=== PATIENT | female | born 1980 ===

== ENCOUNTER → 2017-12-05 | Outpatient (CLI) | payer MEDICAID ==
[~2017-12-05] MED LIST: IBUP600T22 PO; MELA10TA2 PO; PHEN-578 PO; VALA500T66 PO
--- NOTE | 2017-12-05 15:21 | RT STRESS TEST REPORT ---
FACILITY: [facility] PATIENT NAME: KENYETTA ARENAS : [id number] MR: [id number] V: [id number] EXAM DATE: ORDERING PHYSICIAN: MÓNICA RAINES TECHNOLOGIST: Acquisition Time: 2017-12-05 13:59:33 Total Exercise Time: 00:10:00 Test Indications: Chest Pain / Discomfort Medications: Protocol: BRUCE2 Max HR: 179 BPM 96% of Pred: 185 BPM Max BP: 160/077 mmHG Max Work Load: 11.6 METS The patient developed some chest tightness with maximal exertion. Pulse oximetry was noted to be 87%. There were no associated EKG changes. Confirmed by DONNY CAGLE ([id number]) on 12/05/2017 3:21:15 PM Referred By: Overread By: DONNY CAGLE
== END ==
LOC: RESP 00:42
PROVIDERS: ATTEND Obstetrics & Gynecology
DX: R07.89 Other chest pain (principal)
CPT/HCPCS: 93017

== ENCOUNTER 2018-05-17 11:32 | Emergency (ER) | payer MEDICAID ==
--- NOTE | 2018-05-17 11:40 | ER Report ---
History and Physical Time Seen By MD: 11:41 Hx. of Stated Complaint: PATIENT SLIPPED ON ICE LAST NIGHT AND LANDED ON HER FACE. SHE HAS A LACERATION ON HER LOWER LIP ON THE INSIDE DOWN BY HER GUMLINE HPI/ROS CHIEF COMPLAINT: Fall HISTORY OF PRESENT ILLNESS: This is a 37-year-old female presents to emergency department for a fall and facial injuries. Patient states that lastly she slipped on ice, fell forward hitting her nose and jaw on concrete. No loss of consciousness. Did have some bleeding, does have a laceration to the lower frenulum between the teeth and lip. Also has some swelling around the bridge of the nose, abrasion to the upper lip and chin. No C-spine tenderness. No chest pain, no nausea or vomiting. No fevers or chills. REVIEW OF SYSTEMS: Respiratory: No cough, no dyspnea. Cardiovascular: No chest pain, no palpitations. Gastrointestinal: No vomiting, no abdominal pain. Musculoskeletal: As above. Allergies: Coded Allergies: Penicillins (Verified Allergy, Intermediate, RASH, 05/24/17) Home Meds Active Scripts Hydrocodone Bit/Acetaminophen (HYDROCODON-ACETAMINOPHEN 5-325) 1 Each Tablet, 1 EACH PO Q4-6H PRN for PAIN, #8 TAB Prov:CHA GIRALDO [employer] COORDINATOR-BC 05/17/18 Reported Medications Valacyclovir Hcl (VALTREX) 500 Mg Tablet, 500 MG PO QDAY 06/18/17 Phentermine Hcl (PHENTERMINE HCL) 37.5 Mg Tablet, 1 TAB PO QDAY 06/18/17 Melatonin (MELATONIN) 10 Mg Tablet, 10 MG PO QHS 06/18/17 Ibuprofen (IBUPROFEN) 600 Mg Tablet, 1 TAB PO PRN, TAB 06/18/17 Past Medical/Surgical History The patient has a past medical surgical history of tonsillectomy, breast augmentation. Reviewed Nurses Notes: Yes Hx Smoking: No Smoking Status: Never Smoker Exposure to Second Hand Smoke?: Yes (childhood) Hx Substance Use Disorder: No Hx Alcohol Use: Yes (RARE) Constitutional Vital Sign - Last 24 Hours 05/17/18 05/17/18 11:36 14:32 Temp 98.8 Pulse 100 76 Resp 20 18 B/P (MAP) 140/93 140/93 (109) Pulse Ox 93 O2 Delivery Room Air Room Air Physical Exam General Appearance: The patient is alert, has no immediate need for airway protection and no current signs of toxicity. Eyes: Pupils equal and round no injection. EOMs intact. No nystagmus. Respiratory: Chest is non tender, lungs are clear to auscultation. Cardiac: regular rate and rhythm, no murmurs, clicks or rubs. Gastrointestinal: Abdomen is soft and non tender, no masses, bowel sounds normal. Musculoskeletal: Neck: Neck is supple and non tender. No C-spine tenderness. Extremities have full range of motion and are non tender. Skin: Edema to the bridge of the nose, upper and lower lip, and chin. Abrasions to upper lip and chin. Laceration between the lower lip along the gumline, 1 cm. bleeding controlled. DIFFERENTIAL DIAGNOSIS: After history and physical exam differential diagnosis was considered for laceration, mandible fracture, dental fracture and [place] fracture. Medical Decision Making EKG/Imaging Imaging Location: [facility] [place] Patient: Trudy Ramírez : 1980 Visit/Account:[id number] Date of Sevice: 05/17/2018 EXAMINATION: Mandible, 4 views 05/17/2018 11:48 AM HISTORY: fall, pain COMPARISON: None FINDINGS: No mandibular fracture or displacement is demonstrated. TMJ articulations appear to be well preserved. No dental fracture or displacement is demonstrated. Paranasal sinuses as imaged are well aerated. Mastoids are symmetrically pneumatized. Visualized cervical spine is intact. IMPRESSION: Negative exam. Report Dictated By: Tamir Armstrong MD at 05/17/2018 12:52 PM Report E-Signed By: Tamir Armstrong MD at 05/17/2018 12:54 PM WSN:[id number] ED Course/Re-evaluation ED Course The patient was admitted to room. A history of this were obtained. Differential diagnoses were considered. An x-ray of the mandible was negative for any acute osseous abnormalities. I reviewed the imaging results with the patient. I did tell her that this is likely a bruise and will resolve after the next several days. The laceration the inner lip at the gumline was repaired as noted below. Patient tolerated well. Patient was also given viscous lidocaine after the repair, she was also sent home with a prescription for magic mouthwash for pain. She was also sent home with prescription for hydrocodone. Patient was instructed to follow-up with her primary care provider in one week for reevaluation. Patient exposed understanding was discharged home. The patient's tetanus was updated. Procedure: Laceration repair. Verbal consent was obtained from the patient. The one centimeters laceration to the lower inner lip and gumline was anesthetized in the usual fashion. The wound was scrubbed, draped and explored to its base with a gloved finger. There were no deep structures involved. The wound was repaired with 2, 5-0 Vicryl simple interrupted sutures. The wound repair was simple. The procedure was performed by myself. Decision to Disposition Date: May 17, 2018 Decision to Disposition Time: 14:15 Depart Departure Latest Vital Signs Vital Signs Date Time Temp Pulse Resp B/P (MAP) Pulse Ox O2 Delivery O2 Flow Rate FiO2 05/17/18 14:32 76 18 140/93 (109) Room Air 05/17/18 11:36 98.8 93 Impression: Primary Impression: Laceration of gum Condition: Improved Disposition: HOME OR SELF-CARE Referrals: MÓNICA RAINES MD (PCP) New Scripts Hydrocodone Bit/Acetaminophen (HYDROCODON-ACETAMINOPHEN 5-325) 1 Each Tablet 1 EACH PO Q4-6H PRN for PAIN, #8 TAB Prov: CHA GIRALDO 05/17/18 Patient Instructions: Acute Wound Care (ED), Laceration,Lip Additional Instructions: The sutures will dissolve after several weeks. Although the likelihood of an infection is low, there is still a possibility, so please keep a close eye on the wound for increased redness, swelling and pus. Take the hydrocodone as needed for pain. Drink plenty of water. Get plenty of rest. Follow up with your PCP in one week for reevaluation. Return to the ED for any other concerns or worsening symptoms. CHA GIRALDO-BC May 17, 2018 11:40
[2018-05-17] MEDS ORDERED: DIPHTH/TETANUS/ACEL. PERTUSSIS IM ONLY ONE (11:55)
--- NOTE | 2018-05-17 12:58 | RADIOLOGY IMAGING REPORT ---
FACILITY: [facility] PATIENT NAME: Trudy Ramírez : 1980 MR: [id number] V: [id number] EXAM DATE: ORDERING PHYSICIAN: CHA GIRALDO TECHNOLOGIST: [place] [facility] [place]udy Ramírez : 1980 Visit/Account:[id number] Date of Sevice: 05/17/2018 EXAMINATION: Mandible, 4 views 05/17/2018 11:48 AM HISTORY: fall, pain COMPARISON: None FINDINGS: No mandibular fracture or displacement is demonstrated. TMJ articulations appear to be wel l preserved. No dental fracture or displacement is demonstrated. Paranasal sinuses as imaged are well aerated. Mastoids are symmetrically pneumatized. Visualized cervical spine is intact. IMPRESSION: Negative exam. Report Dictated By: Tamir Armstrong MD at 05/17/2018 12:52 PM Report E-Signed By: Tamir Armstrong MD at 05/17/2018 12:54 PM WSN:[id number]
[2018-05-17] MEDS ORDERED: LIDOCAINE 2% VISC SLN 15ML UDC PO ONE (14:10)
[2018-05-17 14:32] VITALS: BP 140/93
[2018-05-17] MEDS ORDERED: HYDR-385 PO (14:34)
== END 2018-05-17 14:35 | disposition home or self-care (01) ==
LOC: ER 11:34
DX: S01.512A Laceration without foreign body of oral cavity, initial encounter (principal); S01.511A Laceration without foreign body of lip, initial encounter; W00.0XXA Fall on same level due to ice and snow, initial encounter
CPT/HCPCS: 70100; 90471; 90715; 99283

== ENCOUNTER 2018-05-19 13:56 | Emergency (ER) | payer MEDICAID ==
[~2018-05-19 13:56] MED LIST changes: +HYDR-385 PO
--- NOTE | 2018-05-19 14:00 | ER Report ---
History and Physical Time Seen By : 14:01 HPI/ROS CHIEF COMPLAINT: Jaw pain HISTORY OF PRESENT ILLNESS: This is a 37-year-old female presents to the emergency department for jaw pain. Patient was seen and evaluated May 17 for a fall injuring her nose, upper lip and chin. She had a laceration between her lower lip and gumline, this was repaired. Mandible X-rays were negative for fracture. The patient states she was feeling better, then last night she began to have some right jaw pain, she also states she feels like the sutures did come out. She does have wounds to the upper lip and chin that are healing, the swelling has improved. She denies fevers or chills, no n/v. No discharge. REVIEW OF SYSTEMS: Constitutional: No fever, no chills. Eyes: No discharge. ENT: No sore throat. Cardiovascular: No chest pain, no palpitations. Respiratory: No cough, no shortness of breath. Gastrointestinal: No abdominal pain, no vomiting. Genitourinary: No hematuria. Musculoskeletal: As above. Skin: Supple. Neurological: No headache. Allergies: Coded Allergies: Penicillins (Verified Allergy, Intermediate, RASH, 05/24/17) Home Meds Active Scripts Hydrocodone Bit/Acetaminophen (HYDROCODON-ACETAMINOPHEN 5-325) 1 Each Tablet, 1 EACH PO Q4-6H PRN for PAIN, #8 TAB Prov:CHA GIRALDO [facility] 05/19/18 Clindamycin Hcl (CLINDAMYCIN HCL) 300 Mg Capsule, 300 MG PO Q6H, #40 CAPSULE Prov:CHA GIRALDO [facility] 05/19/18 Hydrocodone Bit/Acetaminophen (HYDROCODON-ACETAMINOPHEN 5-325) 1 Each Tablet, 1 EACH PO Q4-6H PRN for PAIN, #8 TAB Prov:CHA GIRALDO [facility]- 05/17/18 Reported Medications Valacyclovir Hcl (VALTREX) 500 Mg Tablet, 500 MG PO QDAY 06/18/17 Phentermine Hcl (PHENTERMINE HCL) 37.5 Mg Tablet, 1 TAB PO QDAY 06/18/17 Melatonin (MELATONIN) 10 Mg Tablet, 10 MG PO QHS 06/18/17 Ibuprofen (IBUPROFEN) 600 Mg Tablet, 1 TAB PO PRN, TAB 06/18/17 Past Medical/Surgical History The patient has a past medical and surgical history of tonsillectomy, breast augmentation with implants. Reviewed Nurses Notes: Yes Hx Smoking: No Smoking Status: Never Smoker Exposure to Second Hand Smoke?: Yes (childhood) Hx Substance Use Disorder: No Hx Alcohol Use: Yes (RARE) Constitutional Vital Sign - Last 24 Hours 05/19/18 05/19/18 05/19/18 05/19/18 13:57 14:04 14:15 14:30 Temp 98.4 Pulse 67 Resp 20 B/P (MAP) 120/92 126/96 (106) 120/89 (99) 133/99 (110) Pulse Ox 93 O2 Delivery Room Air 05/19/18 05/19/18 05/19/18 05/19/18 14:45 14:56 15:00 15:15 Pulse 66 B/P (MAP) 120/92 (101) 120/89 (99) 121/92 (102) Pulse Ox 91 05/19/18 05/19/18 15:26 15:30 Pulse 67 B/P (MAP) 123/93 (103) Pulse Ox 94 Physical Exam General Appearance: The patient is alert, has no immediate need for airway protection and no signs of toxicity. Eyes: Pupils equal and round no pallor or injection. ENT, Mouth: Mucous membranes are moist. It does appear that at least one of the sutures between the lower lip and gumline did pull through, no drainage, the la ceration does appear to be healing. No erythema to the gingiva. Respiratory: There are no retractions, lungs are clear to auscultation. Cardiovascular: Regular rate and rhythm. Gastrointestinal: Abdomen is soft and non tender, no masses, bowel sounds nor mal. Neurological: Alert and oriented 4. Moving all x-rays. Following all commands. No focal neuro deficits. Skin: Abrasions to the upper lip and chin are healing, no drainage. There is a small amount of erythema to the chin, no cellulitis. Musculoskeletal: Neck is supple non tender. Right mandible is painful to touch, no crepitus or deformities. Extremities are nontender, nonswollen and have full range of motion. DIFFERENTIAL DIAGNOSIS: After history and physical exam differential diagnosis was considered for cellulitis, contusion, abrasion, mandible fracture. Medical Decision Making EKG/Imaging Imaging EXAMINATION: CT Face without intravenous contrast HISTORY: Trauma. COMPARISON: Mandible radiographs dated 05/17/2018. TECHNIQUE: Axial images were obtained from the superior aspect of the orbits through the inferior aspect of mandible. Coronal and sagittal reformatted images were obtained from the axial source data. No IV contrast was administered. One of the following dose optimization techniques was utilized in the performance of this exam: Automated exposure control; adjustment of the mA and/or kV according to the patient's size; or use of an iterative reconstruction technique. Specific details can be referenced in the facility's radiology CT exam operational policy. FINDINGS: Soft Tissues: Negative. Mandible / TMJ: Negative. Maxillae / pterygoid plates: Negative. Zygoma / zygomatic arches: Negative. Orbits: Negative. Nasal bones / nasal septum: Leftward nasal septal deviation. Frontal bones: Negative. Sinuses: Mild mucosal thickening in the left frontal sinus, maxillary sinus, and ethmoid air cells. Leftward nasal septal deviation. Visualized brain: Negative. IMPRESSION: 1. No acute maxillofacial fracture. 2. Mild mucosal thickening in the left frontal sinus, maxillary sinus, and ethmoid air cells. Leftward nasal septal deviation. Report Dictated By: Cha Urena MD at 05/19/2018 2:53 PM Report E-Signed By: Cha Urena MD at 05/19/2018 2:57 PM WSN:[id number] ED Course/Re-evaluation ED Course The patient was admitted to room. A history of this were obtained. Differential diagnoses were considered. The patient had mandible x-rays on the [place] 1[facility] which were negative for any acute fractures, patient returned today with increased pain to the right mandible, a CT was negative for any acute abnormalities. She does have some mild erythema to the chin no obvious signs of cellulitis, however with the injuries and her complaints she denied decided to start her on clindamycin. She was also given one more prescription for hydrocodone. I did recommend following up with her primary care provider. Return to ER for any other concerns or worsening symptoms. Patient exposed to any was discharged home. No other repairs were done. Decision to Disposition Date: May 19, 2018 Decision to Disposition Time: 15:14 Depart Departure Latest Vital Signs Vital Signs Date Time Temp Pulse Resp B/P (MAP) Pulse Ox O2 Delivery O2 Flow Rate FiO2 05/19/18 15:30 123/93 (103) 12/3/18 15:26 67 94 05/19/18 13:57 98.4 20 Room Air Impression: Primary Impression: Mandible pain Additional Impression: Facial injury Condition: Improved Disposition: HOME OR SELF-CARE Referrals: MÓNICA RAINES MD (PCP) CORNELIUS COLUNGA JR, MD New Scripts Hydrocodone Bit/Acetaminophen (HYDROCODON-ACETAMINOPHEN 5-325) 1 Each Tablet 1 EACH PO Q4-6H PRN for PAIN, #8 TAB Prov: CHA GIRALDO [facility]- 05/19/18 Clindamycin Hcl (CLINDAMYCIN HCL) 300 Mg Capsule 300 MG PO Q6H, #40 CAPSULE Prov: CHA GIRALDO [facility]- 05/19/18 Patient Instructions: Acute Wound Care (ED), Cellulitis (ED) Additional Instructions: No evidence of fracture on the CT today. I am going to treat you for a possible infection, take the clindamycin as directed. Take Ibuprofen and Tylenol as needed for pain. Take the Hydrocodone for severe pain. Drink plenty of water. Get plenty of rest. I would recommend following up with Dr. Colunga the ENT for your deviated septum. Please follow up with your PCP within one week for reevaluation. Return to the ED for any other concerns or worsening symptoms. Problem Qualifiers Additional Impression: Facial injury Encounter type: subsequent encounter Qualified Codes: S09.93XD - Unspecified injury of face, subsequent encounter CHA GIRALDO [facility]- May 19, 2018 14:00
--- NOTE | 2018-05-19 15:01 | RADIOLOGY IMAGING REPORT ---
FACILITY: [facility] PATIENT NAME: Trudy Ramírez : 1980 MR: [id number] V: [id number] EXAM DATE: [id number] ORDERING PHYSICIAN: CHA GIRALDO TECHNOLOGIST: Location: [facility] [place] Patient: Trudy Ramírez : 1980 Visit/Account:[id number] Date of Sevice: 05/19/2018 EXAMINATION: CT Face without intravenous contrast HISTORY: Trauma. COMPARISON: Mandible radiographs dated 05/17/2018. TECHNIQUE: Axial images were obtained from the superior aspect of the orbits through the inferior as pect of mandible. Coronal and sagittal reformatted images were obtained from the axial source data. N o IV contrast was administered. One of the following dose optimization techniques was utilized in the performance of this exam: Autom ated exposure control; adjustment of the mA and/or kV according to the patient's size; or use of an i terative reconstruction technique. Specific details can be referenced in the facility's radiology C T exam operational policy. FINDINGS: Soft Tissues: Negative. Mandible / TMJ: Negative. Maxillae / pterygoid plates: Negative. Zygoma / zygomatic arches: Negative. Orbits: Negative. Nasal bones / nasal septum: Leftward nasal septal deviation. Frontal bones: Negative. Sinuses: Mild mucosal thickening in the left frontal sinus, maxillary sinus, and ethmoid air cells. L eftward nasal septal deviation. Visualized brain: Negative. IMPRESSION: 1. No acute maxillofacial fracture. 2. Mild mucosal thickening in the left frontal sinus, maxillary sinus, and ethmoid air cells. Leftwar d nasal septal deviation. Report Dictated By: Cha Urena MD at 05/19/2018 2:53 PM Report E-Signed By: Cha Urena MD at 05/19/2018 2:57 PM WSN:[id number]
[2018-05-19] MEDS ORDERED: HYDR-385 PO (15:18)
[2018-05-19] MEDS ORDERED: CLIN300C99 PO (15:18)
[2018-05-19 15:30] VITALS: BP 123/93
== END 2018-05-19 15:33 | disposition home or self-care (01) ==
LOC: ER 14:24
DX: R68.84 Jaw pain (principal); S09.93XA Unspecified injury of face, initial encounter
CPT/HCPCS: 70486; 99284